=== PATIENT | male | born 1950 | race Caucasian/White ===

== ENCOUNTER → 2017-03-16 | Outpatient (CLI) | payer MEDICARE ==
[2017-03-16 09:52] LABS: ANION GAP 7 MEQ/L (5-15); AST (GOT) 22 U/L (15-37); BICARBONATE 28.5 MEQ/L (21.0-32.0); BLOOD UREA NITROGEN 16 MG/DL (7-18); CHLORIDE 104 MEQ/L (98-107); GLOMERULAR FILTRATION RATE 57 ML/MIN (>89); GLUCOSE,FASTING 91 MG/DL (74-99); POTASSIUM 3.7 MEQ/L (3.5-5.1); SODIUM (NA) 139 MEQ/L (136-145)
[2017-03-16 09:53] LABS: ALT (GPT) 25 U/L (12-78)
[2017-03-16 09:55] LABS: ALKALINE PHOSPHATASE 86 U/L (45-117); HDL CHOLESTEROL 54.8 MG/DL (40.0-60.0); LDL CHOLESTEROL 136 MG/DL (0-99); TOTAL BILIRUBIN ADULT 0.6 MG/DL (0.2-1.0)
== END ==
LOC: PLAB 07:51
PROVIDERS: ATTEND Family Medicine
DX: I12.9 Hypertensive chronic kidney disease with stage 1 through stage 4 chronic kidney disease, or unspecified chronic kidney disease (principal); E78.2 Mixed hyperlipidemia; N18.3 Chronic kidney disease, stage 3 (moderate)
CPT/HCPCS: 36415; 80053; 80061

== ENCOUNTER → 2017-09-08 | Outpatient (CLI) | payer MEDICARE ==
[2017-09-08 13:50] LABS: ALBUMIN 3.7 GM/DL (3.4-5.0); AST (GOT) 21 U/L (15-37); BICARBONATE 30.4 MEQ/L (21.0-32.0); BLOOD UREA NITROGEN 17 MG/DL (7-18); CALCIUM 9.2 MG/DL (8.5-10.1); CHLORIDE 101 MEQ/L (98-107); CREATININE 1.26 MG/DL (0.60-1.30); GLOMERULAR FILTRATION RATE 57 ML/MIN (>89); GLUCOSE,FASTING 97 MG/DL (74-99); SODIUM (NA) 139 MEQ/L (136-145)
[2017-09-08 13:51] LABS: ALT (GPT) 26 U/L (12-78); CHOLESTEROL 202 MG/DL (120-200); TRIGLYCERIDES 75 MG/DL (42-150)
[2017-09-08 13:54] LABS: ALKALINE PHOSPHATASE 73 U/L (45-117); CHOLESTEROL/ HDL RATIO 3.64 RATIO; HDL CHOLESTEROL 55.4 MG/DL (40.0-60.0); LDL CHOLESTEROL 132 MG/DL (0-99); TOTAL BILIRUBIN ADULT 0.5 MG/DL (0.2-1.0); TOTAL PROTEIN 7.3 GM/DL (6.4-8.2)
== END ==
LOC: PLAB 08:21
PROVIDERS: ATTEND Family Medicine
DX: I10 Essential (primary) hypertension (principal); E78.2 Mixed hyperlipidemia
CPT/HCPCS: 36415; 80053; 80061

== ENCOUNTER 2017-09-25 02:51 | Emergency (ER) | payer MEDICARE ==
[~2017-09-25] VITALS: Ht 170.2 cm; Wt 73.0 kg
[2017-09-25 02:58] VITALS: BP 154/74; PULSE 58; RESP 20; TEMP 97.3; O2SAT 100
[2017-09-25] MEDS ORDERED: LISI10TA PO (03:41)
[2017-09-25] MEDS ORDERED: ASPI81CH6 CHEW (03:41)
[2017-09-25] MEDS ORDERED: MECLIZINE HCL 25 MG TAB PO ONE (03:45)
[2017-09-25] MEDS ORDERED: ONDANSETRON HCL 4 MG/2 ML VIAL IVP ONE (03:45)
[2017-09-25 04:08] LABS: AUTOMATED NEUTROPHIL # 2.4 TH/MM3 (1.8-7.7); BASOPHIL % 0.7 % (0.0-2.0); EOSINOPHIL # 0.4 TH/MM3 (0-0.4); EOSINOPHIL % 8.3 % (0.0-4.0); HEMOGLOBIN 12.8 GM/DL (13.0-17.0); LYMPH % 33.2 % (9.0-44.0); LYMPHOCYTE # 1.6 TH/MM3 (1.0-4.8); MEAN CELL VOLUME 88.5 FL (80.0-100.0); MEAN CORPUSCULAR HEMOGLOBIN 29.8 PG (27.0-34.0); MEAN CORPUSCULAR HGB CONC 33.6 % (32.0-36.0); MEAN PLATELET VOLUME 7.8 FL (7.0-11.0); MONO % 8.2 % (0.0-8.0); MONOCYTE # 0.4 TH/MM3 (0-0.9); NEUT % 49.6 % (16.0-70.0); PLATELET COUNT 230 TH/MM3 (150-450); RED CELL DISTRIBUTION WIDTH 13.2 % (11.6-17.2); WHITE BLOOD COUNT 4.8 TH/MM3 (4.0-11.0)
[2017-09-25] MEDS: SODIUM CHLOR 0.9% 1000 ML INJ 1,000 ML IV SCH ×2 (04:14→04:30)
[2017-09-25 04:16] LABS: CHLORIDE 105 MEQ/L (98-107); SODIUM (NA) 139 MEQ/L (136-145)
[2017-09-25 04:18] LABS: CALCIUM 8.6 MG/DL (8.5-10.1)
[2017-09-25 04:19] LABS: BICARBONATE 27.7 MEQ/L (21.0-32.0); BLOOD UREA NITROGEN 21 MG/DL (7-18); GLUCOSE,RANDOM 110 MG/DL (74-106); MAGNESIUM 2.1 MG/DL (1.5-2.5)
[2017-09-25 04:22] VITALS: BP 124/73; PULSE 51; RESP 16; O2SAT 100
[2017-09-25 04:22] LABS: ALT (GPT) 59 U/L (12-78); AST (GOT) 27 U/L (15-37); GLOMERULAR FILTRATION RATE 60 ML/MIN (>89)
[2017-09-25 04:23] VITALS: BP 124/73; PULSE 52; RESP 16; O2SAT 100
[2017-09-25 04:24] LABS: TOTAL BILIRUBIN ADULT 0.4 MG/DL (0.2-1.0); TOTAL PROTEIN 6.7 GM/DL (6.4-8.2)
[2017-09-25 04:25] LABS: ALKALINE PHOSPHATASE 138 U/L (45-117)
[2017-09-25 04:27] LABS: TROPONIN I LESS THAN 0.02 NG/ML (0.02-0.05)
[2017-09-25] MEDS ORDERED: LORazepam 2 MG/ML VIAL IV PUSH ONE (04:30)
[2017-09-25] MEDS ORDERED: MECL-62 PO (05:42)
[2017-09-25] MEDS ORDERED: ZOFR4TAB PO (05:42)
[2017-09-25] MEDS ORDERED: DIAZ5 PO (05:42)
--- NOTE | 2017-09-25 05:45 | PD ---
HPI Chief Complaint: Dizziness Time Seen by Provider: 03:35 Travel History International Travel<30 days: No Contact w/Intl Traveler<30days: No Traveled to known affect area: No History of Present Illness HPI The patient is a 67-year-old male that woke up at approximately 0200 in the morning as with nausea and dizziness and vertigo. He denies any headache. He denies any focal neurologic change. He denies any chest pain or diaphoresis. He denies any shortness of breath. His only medicine is lisinopril/ hydrochlorothiazide. The patient is nauseated. He knows he has to hold his head completely still or the patient will get vertigo and will get nauseated and start vomiting. He states he has tinnitus in his left ear. PFSH Past Medical History Diminished Hearing: No Hypertension: Yes Tetanus Vaccination: > 5 Years Influenza Vaccination: No ?: Not Past Surgical History Surgical History: No Previous Surgery Social History Alcohol Use: No Tobacco Use: No Substance Use: No Allergies-Medications (Allergen,Severity, Reaction): Coded Allergies: No Known Allergies (Unverified , 09/25/17) Reported Meds & Prescriptions Reported Meds & Active Scripts Active Reported Aspirin Low Dose (Aspirin) 81 Mg Chew 81 Mg CHEW DAILY Lisinopril-Hctz 10-12.5 Mg Tab 1 Tab PO DAILY Review of Systems Except as stated in HPI: all other systems reviewed are Neg Physical Exam Narrative GENERAL: The patient is alert, oriented 3 in moderate distress with his vertigo. He told his head completely still. His vital signs show blood pressure 154/74 but otherwise are normal. SKIN: Focused skin assessment warm/dry. HEAD: Atraumatic. Normocephalic. EYES: Pupils equal and round. No scleral icterus. No injection or drainage. ENT: No nasal bleeding or discharge. Mucous membranes pink and moist. The tympanic membranes are clear and the throat is clear. When the patient moves his head he has nystagmus and gets nauseated. NECK: Trachea midline. No JVD. CARDIOVASCULAR: Regular rate and rhythm. No murmur appreciated. RESPIRATORY: No accessory muscle use. Clear to auscultation. Breath sounds equal bilaterally. GASTROINTESTINAL: Abdomen soft, non-tender, nondistended. Hepatic and splenic margins not palpable. MUSCULOSKELETAL: No obvious deformities. No clubbing. No cyanosis. No edema. NEUROLOGICAL: Awake and alert. No obvious cranial nerve deficits. Motor grossly within normal limits. Normal speech and gait. PSYCHIATRIC: Appropriate mood and affect; insight and judgment normal. Data Data Last Documented VS Vital Signs Date Time Temp Pulse Resp B/P (MAP) Pulse Ox O2 Delivery O2 Flow Rate FiO2 09/25/17 04:22 51 16 124/73 (90) 100 Room Air 09/25/17 02:58 97.3 Orders Orders Electrocardiogram (09/25/17 03:43) Complete Blood Count With Diff (09/25/17 03:43) Comprehensive Metabolic Panel (09/25/17 03:43) Troponin I (09/25/17 03:43) Urinalysis - C+S If Indicated (09/25/17 03:43) Magnesium (Mg) (09/25/17 03:43) Iv Access Insert/Monitor (09/25/17 03:43) Ecg Monitoring (09/25/17 03:43) Oximetry (09/25/17 03:43) Ondansetron Inj (Zofran Inj) (09/25/17 03:45) Meclizine (Antivert) (09/25/17 03:45) Sodium Chlor 0.9% 1000 Ml Inj (Ns 1000 M (09/25/17 04:00) Lorazepam Inj (Ativan Inj) (09/25/17 04:30) Labs Laboratory Tests Test 09/25/17 04:00 White Blood Count 4.8 TH/MM3 Red Blood Count 4.30 MIL/MM3 Hemoglobin 12.8 GM/DL Hematocrit 38.0 % Mean Corpuscular Volume 88.5 FL Mean Corpuscular Hemoglobin 29.8 PG Mean Corpuscular Hemoglobin Concent 33.6 % Red Cell Distribution Width 13.2 % Platelet Count 230 TH/MM3 Mean Platelet Volume 7.8 FL Neutrophils (%) (Auto) 49.6 % Lymphocytes (%) (Auto) 33.2 % Monocytes (%) (Auto) 8.2 % Eosinophils (%) (Auto) 8.3 % Basophils (%) (Auto) 0.7 % Neutrophils # (Auto) 2.4 TH/MM3 Lymphocytes # (Auto) 1.6 TH/MM3 Monocytes # (Auto) 0.4 TH/MM3 Eosinophils # (Auto) 0.4 TH/MM3 Basophils # (Auto) 0.0 TH/MM3 CBC Comment DIFF FINAL Differential Comment Blood Urea Nitrogen 21 MG/DL Creatinine 1.20 MG/DL Random Glucose 110 MG/DL Total Protein 6.7 GM/DL Albumin 3.0 GM/DL Calcium Level 8.6 MG/DL Magnesium Level 2.1 MG/DL Alkaline Phosphatase 138 U/L Aspartate Amino Transf (AST/SGOT) 27 U/L Alanine Aminotransferase (ALT/SGPT) 59 U/L Total Bilirubin 0.4 MG/DL Sodium Level 139 MEQ/L Potassium Level 4.0 MEQ/L Chloride Level 105 MEQ/L Carbon Dioxide Level 27.7 MEQ/L Anion Gap 6 MEQ/L Estimat Glomerular Filtration Rate 60 ML/MIN Troponin I LESS THAN 0.02 NG/ML MDM Medical Decision Making Medical Screen Exam Complete: Yes Emergency Medical Condition: Yes Medical Record Reviewed: Yes Interpretation(s) The CBC is normal except for hemoglobin of 12.8 and hematocrit of 38.0. The complete metabolic profile shows a BUN of 21, GFR of 60, alkaline phosphatase of 138 and albumin 3.0. The troponin I is normal. Differential Diagnosis Viral labyrinthitis, benign positional vertigo, electrolyte disorder, hypo-/ hyperglycemia, ischemic CVA-highly unlikely. Narrative Course It is now 0540 and the patient feels much better and his vertigo is resolving. He has no nausea now. He seemed to respond to the Ativan more than the meclizine. The patient will be written prescriptions for meclizine and Ativan as well as Zofran for nausea. He needs to follow-up with ENT if he has persistent symptoms of vertigo. Impression: Labyrinthitis Diagnosis Primary Impression: Labyrinthitis of left ear Additional Instructions: As we discussed, the meclizine is the mildest drug and this is every 8 hours as needed for vertigo. If you have breakthrough vertigo then take the Valium 5 mg as often as 3 times daily. Valium will make you dizzy and sleepy so do not drink alcohol or drive on this medication. The Zofran is every 6 hours as needed for nausea. If you have persistent vertigo then you need to follow-up with an chief mate (ENT). Med/Other Pt SpecificInfo: Prescription(s) given Scripts Ondansetron (Zofran) 4 Mg Tab 4 MG PO Q6HR Y for NAUSEA OR VOMITING, #44 TAB 0 Refills Prov: Jose Mendez MD 09/25/17 Diazepam (Valium) 5 Mg Tab 5 MG PO TID Y for vertigo, #44 TAB 0 Refills Prov: Jose Mendez MD 09/25/17 Meclizine (Meclizine) 25 Mg Tab 25 MG PO TID Y for VERTIGO, #30 TAB 0 Refills Prov: Jose Mendez MD 09/25/17 Disposition: 01 DISCHARGE HOME Condition: Stable Jose Mendez MD Sep 25, 2017 05:44
[2017-09-25 06:08] VITALS: BP 105/65; TEMP 97.6
--- NOTE | 2017-09-25 13:18 | EKG ---
Date Performed: 09/25/2017 Time Performed: 04:04:15 PTAGE: 67 years EKG: SINUS BRADYCARDIA MINIMAL VOLTAGE CRITERIA FOR LVH, CONSIDER NORMAL VARIANT BORDERLINE ECG NO PREVIOUS TRACING DOCTOR: Junior Johnson Interpretating Date/Time 09/25/2017 13:16:42
== END 2017-09-25 06:11 | disposition home or self-care (01) ==
LOC: PHED 02:51
DX: H83.02 Labyrinthitis, left ear (principal); R11.0 Nausea; R42 Dizziness and giddiness; R00.1 Bradycardia, unspecified; I10 Essential (primary) hypertension; Z79.82 Long term (current) use of aspirin; Z79.899 Other long term (current) drug therapy
CPT/HCPCS: 80053; 83735; 84484; 85025; 93005; 96361; 96374; 96375; 99284; J2060; J2405; J7030